=== PATIENT | male | born 1990 | race Caucasian/White ===

== ENCOUNTER 2017-11-19 14:31 | Emergency (ER) | payer BC, OTHER ==
--- NOTE | 2017-11-19 14:37 | PDOC ---
History of Present Illness - History of Present Illness Initial Comments: 11/19/17 14:35 Mr. Lawson is a 27 yo male w/ no pmh who presents for evaluation of finger injury. 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 He is unsure what happened but reports that he has been unable to flex his left 5th finger since this occurred. He presents for evaluation as it has not gotten better over the past 6 days. The patient denies chest pain, shortness of breath, headache and dizziness. Denies fever, chills, nausea, vomit, diarrhea and constipation. Denies dysuria, frequency, urgency and hematuria. Allergies: NKDA <Pieter Neville - Last Filed: 11/19/17 15:18> <Guerrero Barnett - Last Filed: 11/19/17 15:41> - General Stated Complaint: FINGER INJURY Time Seen by Provider: 11/19/17 14:34 Past History - Immunization History Immunization Up to Date: Yes - Suicide/Smoking/Psychosocial Hx Smoking History: Never smoked Have you smoked in the past 12 months: No Hx Alcohol Use: No Drug/Substance Use Hx: No Substance Use Type: None <Pieter Neville - Last Filed: 11/19/17 15:18> <Guerrero Barnett - Last Filed: 11/19/17 15:41> - Past Medical History Allergies/Adverse Reactions: Allergies Allergy/AdvReac Type Severity Reaction Status Date / Time No Known Allergies Allergy Verified 11/19/17 14:40 Home Medications: Ambulatory Orders NK [No Known Home Medication] 11/19/17 Review of Systems - Review of Systems Comments:: 11/19/17 14:36 GENERAL/CONSTITUTIONAL: No fever or chills. No weakness. HEAD, EYES, EARS, NOSE AND THROAT: No change in vision. No ear pain or discharge. No sore throat. CARDIOVASCULAR: No chest pain or shortness of breath RESPIRATORY: No cough, wheezing, or hemoptysis. GASTROINTESTINAL: No nausea, vomiting, diarrhea or constipation. GENITOURINARY: No dysuria, frequency, or change in urination. MUSCULOSKELETAL: +Left finger pain. No neck or back pain. SKIN: No rash NEUROLOGIC: No headache, vertigo, loss of consciousness, or change in strength/ sensation. ENDOCRINE: No increased thirst. No abnormal weight change HEMATOLOGIC/LYMPHATIC: No anemia, easy bleeding, or history of blood clots. ALLERGIC/IMMUNOLOGIC: No hives or skin allergy. <Pieter Neville - Last Filed: 11/19/17 15:18> *Physical Exam - Physical Exam Comments: 11/19/17 14:36 GENERAL: Awake, alert, and fully oriented, in no acute distress HEAD: No signs of trauma, normocephalic, atraumatic EYES: PERRLA, EOMI, sclera anicteric, conjunctiva clear ENT: Auricles normal inspection, hearing grossly normal, nares patent, oropharynx clear without exudates. Moist mucosa NECK: Normal ROM, supple, no lymphadenopathy, JVD, or masses LUNGS: No distress, speaks full sentences, clear to auscultation bilaterally HEART: Regular rate and rhythm, normal S1 and S2, no murmurs, rubs or gallops, peripheral pulses normal and equal bilaterally. ABDOMEN: Soft, nontender, normoactive bowel sounds. No guarding, no rebound. No masses EXTREMITIES: +Left 5th proximal interphalange joint swelling and tenderness to palpation. No clubbing or cyanosis. NEUROLOGICAL: Cranial nerves II through XII grossly intact. Normal speech, normal gait, no focal sensorimotor deficits SKIN: Warm, Dry, normal turgor, no rashes or lesions noted. <Pieter Neville - Last Filed: 11/19/17 15:18> - Vital Signs Last Vital Signs Temp Pulse Resp BP Pulse Ox 98.7 F 68 18 115/68 100 11/19/17 14:42 11/19/17 14:42 11/19/17 14:42 11/19/17 14:42 11/19/17 14:42 <Guerrero Barnett - Last Filed: 11/19/17 15:41> Medical Decision Making - Medical Decision Making 11/19/17 15:18 Mr. Lawson is a 27 yo male w/ no pmh who presents for evaluation of 5th left finger as described. XR confirms no acute fracture, however with difficulty flexing and pain to palpation there is some concern for ligamentous injury. Will refer to ortho hand specialist for further evaluation. Patient verbalized agreement and understanding and will comply. <Pieter Neville - Last Filed: 11/19/17 15:18> *DC/Admit/Observation/Transfer <Pieter Neville - Last Filed: 11/19/17 15:18> <AniblaGuerrero - Last Filed: 11/19/17 15:41> Diagnosis at time of Disposition: Finger injury Qualifiers: Encounter type: initial encounter Laterality: left Qualified Code(s): S69.92XA - Unspecified injury of left wrist, hand and finger(s), initial encounter - Discharge Dispostion Disposition: HOME - Referrals Referrals: Tiburcio Patrick MD [Staff Physician] - - Patient Instructions Printed Discharge Instructions: DI for Finger Flexor Tendon Injury Additional Instructions: Follow-up with hand specialist as discussed. You will need further evaluation to make sure you do not have an injured ligament in your finger. Call the number provided to make an appointment with our orthopedist. Failure to follow up can result in permanent disability of your finger. Please return to ER if any increase in pain, fever, chills, or other concerning symptoms.
[2017-11-19 14:49] VITALS: BP 115/68; PULSE 68; TEMP 98.7; BMI 29.1
--- NOTE | 2017-11-19 15:12 | PDOC ---
Attending Attestation - Resident Resident Name: Pieter Neville - ED Attending Attestation I have performed the following: I have examined & evaluated the patient, The case was reviewed & discussed with the resident, I agree w/resident's findings & plan, Exceptions are as noted - HPI HPI: 11/19/17 15:15 The patient is a 27 year old male with no significant PMH who presents to the emergency department with a 5th left finger injury acquired 6 days ago. 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 He does not recall exactly how the injury happened but states that his finger became swollen and painful shortly after. The patient reports that he is here today because he continues to have pain when he bends his finger. the patient denies any numbness, weakness or tingling sensation. Denies any injuries to anything else. - Physicial Exam PE: 11/19/17 15:20 "GENERAL: Awake, alert, and fully oriented, in no acute distress. HEAD: No signs of trauma EYES: PERRLA, EOMI, sclera anicteric, conjunctiva clear ENT: Auricles normal inspection, hearing grossly normal, nares patent, oropharynx clear without exudates. Moist mucosa NECK: Nontender, no stepoffs, Normal ROM, supple, no lymphadenopathy, JVD, or masses LUNGS: Breath sounds equal, clear to auscultation bilaterally. No wheezes, and no crackles HEART: Regular rate and rhythm, normal S1 and S2, no murmurs, rubs or gallops ABDOMEN: Soft, nontender, normoactive bowel sounds. No guarding, no rebound. No masses EXTREMITIES: + L 5th digit with swelling to PIP joint, slightly diminished ROM of PIP, full isolated ROM of DIP joint, no abrasions, no lacerations NEUROLOGICAL: Cranial nerves II through XII intact. 5/5 strength and sensation in all extremities, Normal speech, normal gait, normal cerebellar function SKIN: Warm, Dry, normal turgor, no rashes or lesions noted. " - Medical Decision Making 11/19/17 15:21 27 M with L 5th digit injury. Possible tendon injury as pt with difficulty flexing PIP joint. - XR to r/o fx - F/u ortho hand 11/19/17 15:40 XR with possible small avulsion fx of 5th digit. Pt placed in finger splint. Ortho hand f/u given to pt. Pt is well appearing, with normal vitals. Clinically stable for DC at this time. I discussed the physical exam findings, ancillary test results and final diagnoses with the patient. I answered all of the patient's questions. The patient was satisfied with the care received and felt comfortable with the discharge plan and treatment plan. The patient agrees to follow up with the primary care physician within 24-72 hours.
== END 2017-11-19 16:22 | disposition home or self-care (01) ==
LOC: FER 14:31
DX: S69.92XA Unspecified injury of left wrist, hand and finger(s), initial encounter (principal); X58.XXXA Exposure to other specified factors, initial encounter; Y35.891A Legal intervention involving other specified means, law enforcement official injured, initial encounter; Y93.89 Activity, other specified; Y92.9 Unspecified place or not applicable
CPT/HCPCS: 73140-TC-LT-FY; 99283-25